=== PATIENT | female | born 1940 | race Caucasian/White ===

== ENCOUNTER → 2017-11-02 | Outpatient (CLI) | payer MEDICARE, OTHER | LOC: M SLEEP 20:00 | DX: G47.33 Obstructive sleep apnea (adult) (pediatric) (principal) | CPT/HCPCS: 95811 ==

== ENCOUNTER → 2019-03-22 | Outpatient (REF) | payer MEDICARE, OTHER | LOC: M LAB REF 16:08 | PROVIDERS: ATTEND Nurse Practitioner Adult Health | DX: R19.7 Diarrhea, unspecified (principal) ==

== ENCOUNTER → 2019-09-07 | Outpatient (REF) | payer MEDICARE, OTHER | LOC: M LAB REF 12:24 | PROVIDERS: ATTEND Family Medicine | DX: E83.52 Hypercalcemia (principal) ==

== ENCOUNTER → 2021-02-05 | Outpatient (REF) | payer MEDICARE, OTHER ==
[2021-02-05 15:36] LABS: FREE T3 2.9 PG/ML (2.2-4.0); FREE T4 0.89 NG/DL (0.76-1.46); FREE THYROXINE INDEX 2.9 % (1.3-4.8); THYROXINE (T4) 8.8 UG/DL (4.5-12.0)
[2021-02-06 16:11] LABS: SSA SJOGRENS A <0.2 AI (0.0-0.9); SSB SJOGRENS B <0.2 AI (0.0-0.9)
== END ==
LOC: M LAB REF 14:31
PROVIDERS: ATTEND Family Medicine
DX: H16.229 Keratoconjunctivitis sicca, not specified as Sjogren's, unspecified eye (principal)

== ENCOUNTER → 2021-12-12 | Outpatient (CLI) | payer MEDICARE, OTHER | LOC: M WHC 07:54 | PROVIDERS: ATTEND Family Medicine | DX: Z12.31 Encounter for screening mammogram for malignant neoplasm of breast (principal); M85.80 Other specified disorders of bone density and structure, unspecified site; Z80.3 Family history of malignant neoplasm of breast ==

== ENCOUNTER → 2021-12-14 | Outpatient (CLI) | payer MEDICARE, OTHER | LOC: M WHC 08:15 | PROVIDERS: ATTEND Family Medicine | DX: M85.851 Other specified disorders of bone density and structure, right thigh (principal); M85.852 Other specified disorders of bone density and structure, left thigh ==

== ENCOUNTER → 2022-03-22 | Outpatient (CLI) | payer MEDICARE, OTHER | LOC: M SOG 13:10 | PROVIDERS: ATTEND Orthopaedic Surgery Adult Reconstructive Orthopaedic Surgery | DX: M25.561 Pain in right knee (principal); M25.761 Osteophyte, right knee ==

== ENCOUNTER → 2022-12-13 | Outpatient (CLI) | payer MEDICARE, OTHER | LOC: M WHC 08:09 | PROVIDERS: ATTEND Family Medicine | DX: Z12.31 Encounter for screening mammogram for malignant neoplasm of breast (principal); Z80.3 Family history of malignant neoplasm of breast; R92.1 Mammographic calcification found on diagnostic imaging of breast ==

== ENCOUNTER → 2023-02-12 | Outpatient (REF) | payer MEDICARE, OTHER ==
[2023-02-12 12:22] LABS: IONIZED CALCIUM 4.9 MG/DL (4.5-5.3)
[2023-02-12 13:10] LABS: PTH INTACT 96.6 PG/ML (18.5-88.0)
== END ==
LOC: M LAB REF 12:08
PROVIDERS: ATTEND Family Medicine
DX: E83.52 Hypercalcemia (principal)

== ENCOUNTER → 2023-11-12 | Outpatient (CLI) | payer MEDICARE, OTHER ==
[~2023-11-12] MED LIST: ASPI81TA26 PO; ATEN25TA PO; ATOR80TA59 PO; ERGO500029 PO; LISI10TA22 PO; OMEG10002 PO; SLOWTAB2 PO; SPIR1TAB34 PO; THERTAB52 PO
== END ==
LOC: M PLAIMG 09:15
PROVIDERS: ATTEND Family Medicine
DX: R01.1 Cardiac murmur, unspecified (principal)

== ENCOUNTER 2023-11-26 07:33 | Day surgery (SDC) | payer MEDICARE, OTHER ==
[~2023-11-26] VITALS: Ht 167.6 cm; Wt 91.7 kg
[~2023-11-26 07:33] MED LIST changes: +PHENYLEPHRINE 10% OPHTH SOL 5ML OS PRN; +fentaNYL 100 MCG/2 ML INJECTION As Ordered ONE
[2023-11-26] MEDS: OFLOXACIN 0.3 % (OCUFLOX) OPTH SOL 5ML OS ONE (10:12)
[2023-11-26] MEDS: LIDOCAINE 3.5 % 1ML OPHTH TOPICAL GEL OU ONE (10:13)
[2023-11-26] MEDS: ATROPINE SULFATE 1% OPHTH SOLN 2ML BTL OS SCH (10:13)
[2023-11-26] MEDS: TROPICAMIDE 1% OPHTH SOLN 15ML OS SCH (10:13)
[2023-11-26] MEDS: PHENYLEPHRINE 2.5% OPHTH SOL 2ML OS SCH (10:13)
[2023-11-26] MEDS: BSS IRRIG/VANCO(10MG)/TOBRA(5MG)/EPINEPH(1:1000-0.5CC)500ML BAG-ORONLY As Ordered ONE (10:53)
[2023-11-26] MEDS: LIDOCAINE 1% SDV 5ML VIAL As Ordered ONE (10:53)
[2023-11-26] MEDS: CEFUROXIME 1MG/0.1ML INTRACAMERAL INJ As Ordered ONE (10:56)
[2023-11-26] MEDS ORDERED: PROVISC 10 MG/ML 0.85ML SYRINGE As Ordered ONE (10:59)
[2023-11-26 11:07] VITALS: TEMP 97.1; O2SAT 97
[2023-11-26 11:25] VITALS: BP 140/66
== END 2023-11-26 11:35 | disposition home or self-care (01) ==
LOC: M SDC 07:33
PROVIDERS: ATTEND Ophthalmology
DX: H25.12 Age-related nuclear cataract, left eye (principal); H57.03 Miosis; I10 Essential (primary) hypertension; E78.5 Hyperlipidemia, unspecified; Z86.73 Personal history of transient ischemic attack (TIA), and cerebral infarction without residual deficits; G47.33 Obstructive sleep apnea (adult) (pediatric); Z79.82 Long term (current) use of aspirin; Z79.899 Other long term (current) drug therapy
CPT/HCPCS: 66982; 92015; A4649; J0697; J3010; V2788

== ENCOUNTER 2023-12-03 08:08 | Day surgery (SDC) | payer MEDICARE, OTHER ==
[~2023-12-03] VITALS: Ht 167.6 cm; Wt 90.8 kg
[2023-12-03] MEDS: LIDOCAINE 1% SDV 5ML VIAL As Ordered ONE (06:51)
[~2023-12-03 08:08] MED LIST changes: +MIDAZOLAM INJ 2MG/2ML VIAL As Ordered ONE; +PHENYLEPHRINE 10% OPHTH SOL 5ML OD PRN; -PHENYLEPHRINE 10% OPHTH SOL 5ML OS PRN
[2023-12-03] MEDS: OFLOXACIN 0.3 % (OCUFLOX) OPTH SOL 5ML OD ONE (09:00)
[2023-12-03] MEDS: LIDOCAINE 3.5 % 1ML OPHTH TOPICAL GEL OU ONE (09:00)
[2023-12-03] MEDS: PHENYLEPHRINE 2.5% OPHTH SOL 2ML OD SCH (09:12)
[2023-12-03] MEDS: TROPICAMIDE 1% OPHTH SOLN 15ML OD SCH (09:12)
[2023-12-03] MEDS: ATROPINE SULFATE 1% OPHTH SOLN 2ML BTL OD SCH (09:12)
[2023-12-03] MEDS: CEFUROXIME 1MG/0.1ML INTRACAMERAL INJ As Ordered ONE (09:50)
[2023-12-03] MEDS: BSS IRRIG/VANCO(10MG)/TOBRA(5MG)/EPINEPH(1:1000-0.5CC)500ML BAG-ORONLY As Ordered ONE (09:50)
[2023-12-03] MEDS: DUOVISC (0.50ML VISCOAT/0.85ML PROVISC) OPHTH KIT As Ordered ONE (09:50)
[2023-12-03 10:06] VITALS: BP 130/63; TEMP 96.9; O2SAT 97
== END 2023-12-03 10:22 | disposition home or self-care (01) ==
LOC: M SDC 08:08
PROVIDERS: ATTEND Ophthalmology
DX: H25.11 Age-related nuclear cataract, right eye (principal); H57.03 Miosis; I10 Essential (primary) hypertension; E78.5 Hyperlipidemia, unspecified; Z86.73 Personal history of transient ischemic attack (TIA), and cerebral infarction without residual deficits; G47.33 Obstructive sleep apnea (adult) (pediatric); Z79.82 Long term (current) use of aspirin; Z79.899 Other long term (current) drug therapy
CPT/HCPCS: 66982; 92015; J0697; J2250; J3010; V2788

== ENCOUNTER → 2023-12-17 | Outpatient (CLI) | payer MEDICARE, OTHER ==
[~2023-12-17] MED LIST changes: -MIDAZOLAM INJ 2MG/2ML VIAL As Ordered ONE; -PHENYLEPHRINE 10% OPHTH SOL 5ML OD PRN; -fentaNYL 100 MCG/2 ML INJECTION As Ordered ONE
== END ==
LOC: M WHC 08:12
PROVIDERS: ATTEND Advanced Practice Midwife
DX: Z12.31 Encounter for screening mammogram for malignant neoplasm of breast (principal)

== ENCOUNTER 2023-12-18 06:12 | Day surgery (SDC) | payer MEDICARE, OTHER ==
[~2023-12-18] VITALS: Ht 167.6 cm; Wt 90.8 kg
[~2023-12-18 06:12] MED LIST changes: +PHENYLEPHRINE 10% OPHTH SOL 5ML OD PRN
[2023-12-18] MEDS: TROPICAMIDE 1% OPHTH SOLN 15ML OD SCH (06:51)
[2023-12-18] MEDS: PHENYLEPHRINE 2.5% OPHTH SOL 2ML OD SCH (06:51)
[2023-12-18] MEDS: ATROPINE SULFATE 1% OPHTH SOLN 2ML BTL OD SCH (06:51)
[2023-12-18] MEDS: OFLOXACIN 0.3 % (OCUFLOX) OPTH SOL 5ML OD ONE (06:52)
[2023-12-18] MEDS: LIDOCAINE 3.5 % 1ML OPHTH TOPICAL GEL OU ONE (06:52)
[2023-12-18] MEDS ORDERED: fentaNYL 100 MCG/2 ML INJECTION As Ordered ONE (07:03)
[2023-12-18] MEDS ORDERED: MIDAZOLAM INJ 2MG/2ML VIAL As Ordered ONE (07:03)
[2023-12-18] MEDS: LIDOCAINE 1% SDV 5ML VIAL As Ordered ONE (07:49)
[2023-12-18] MEDS: BSS IRRIG/VANCO(10MG)/TOBRA(5MG)/EPINEPH(1:1000-0.5CC)500ML BAG-ORONLY As Ordered ONE (07:49)
[2023-12-18 08:00] VITALS: BP 135/73; TEMP 96.7; O2SAT 96
== END 2023-12-18 18:15 | disposition home or self-care (01) ==
LOC: M SDC 06:12
PROVIDERS: ATTEND Ophthalmology
DX: H27.8 Other specified disorders of lens (principal); I10 Essential (primary) hypertension; E78.5 Hyperlipidemia, unspecified; Z86.73 Personal history of transient ischemic attack (TIA), and cerebral infarction without residual deficits; G47.33 Obstructive sleep apnea (adult) (pediatric); Z79.82 Long term (current) use of aspirin; Z79.899 Other long term (current) drug therapy
CPT/HCPCS: 66825; J2250; J3010

== ENCOUNTER → 2024-04-09 | Outpatient (CLI) | payer MEDICARE, OTHER ==
[~2024-04-09] MED LIST changes: -PHENYLEPHRINE 10% OPHTH SOL 5ML OD PRN
== END ==
LOC: M WUC 14:03
PROVIDERS: ATTEND Physician Assistant Medical
DX: M79.671 Pain in right foot (principal); M77.31 Calcaneal spur, right foot

== ENCOUNTER → 2024-12-23 | Outpatient (CLI) | payer MEDICARE, OTHER ==
[~2024-12-23] MED LIST changes: +AMOX875T2 PO
== END ==
LOC: M WHC 08:57
PROVIDERS: ATTEND Advanced Practice Midwife
DX: Z12.31 Encounter for screening mammogram for malignant neoplasm of breast (principal); R92.323 Mammographic fibroglandular density, bilateral breasts

== ENCOUNTER → 2025-02-16 | Outpatient (CLI) | payer MEDICARE, OTHER ==
[~2025-02-16] MED LIST changes: +SLOW1TAB3 PO; -SLOWTAB2 PO
== END ==
LOC: M WUC 13:53
PROVIDERS: ATTEND Physician Assistant
DX: M25.511 Pain in right shoulder (principal)

== ENCOUNTER → 2025-03-16 | Outpatient (CLI) | payer MEDICARE, OTHER | LOC: M PLAIMG 11:53 | PROVIDERS: ATTEND Family Medicine | DX: M25.511 Pain in right shoulder (principal) ==

== ENCOUNTER → 2025-04-05 | Outpatient (CLI) | payer MEDICARE, OTHER | LOC: M WUC 08:59 | PROVIDERS: ATTEND Orthopaedic Surgery | DX: Z01.811 Encounter for preprocedural respiratory examination (principal) ==

== ENCOUNTER → 2025-04-06 | Outpatient (REF) | payer MEDICARE, OTHER | LOC: M LAB REF 12:30 | PROVIDERS: ATTEND Family Medicine | DX: N39.0 Urinary tract infection, site not specified (principal) ==